=== PATIENT | female | born 1965 | race Caucasian/White ===

== ENCOUNTER 2017-02-25 23:58 | Emergency (ER) | payer SELFPAY ==
[2017-02-25 23:58] VITALS: BMI 25.1
[2017-02-26 00:09] VITALS: BP 115/77; PULSE 84; RESP 16; TEMP 97.6; O2SAT 98
[2017-02-26] MEDS ORDERED: Oxycodone/Acetaminophen 5/325 mg Tab PO STA (01:00)
--- NOTE | 2017-02-26 01:03 | C.PDOC ---
History Of Present Illness Patient is a 51 year old female w/PMHx of HTN ( diet controlled), asthma came to ED for evaluation of frontal headache and "has been unable to sleep for the past 10 days due to headache and neck pain". Patient describes headache as frontal " between my eyes and gnosticism area", intermittent worse with looking down. Describes posterior neck pain as aching, intermittent, worse in AM and with head rotation. The patient describes the headache as a similar headache she had month before. Patient received a head CT for the prior headache without acute abnormalities, (+) sinusitis. Patient denies recent antibiotic use . Patient denies fever, chills, denies worse headache of life, visual changes, blurry vision, double vision or floaters, focal deficits, vomiting, nausea, CP, SOB, dyspnea, diaphoresis, palpitation, abd. pain, UTI sx. Ambulate to ED for evaluation, not in any apparent distress. Time Seen by Provider: 02/26/17 00:17 Chief Complaint (Nursing): Eye Problem History Per: Patient Onset/Duration Of Symptoms: Intermittent Episodes Current Symptoms Are (Timing): Still Present Severity: Moderate Quality: Aching Past Medical History Reviewed: Historical Data, Nursing Documentation, Vital Signs Vital Signs: Last Vital Signs Temp 97.6 F 02/26/17 00:04 Pulse 84 02/26/17 00:04 Resp 16 02/26/17 00:04 BP 115/77 02/26/17 00:04 Pulse Ox 98 02/26/17 00:04 - Medical History PMH: Anxiety, HTN (diet controlled) Surgical History: Family History: States: No Known Family Hx - Social History Hx Tobacco Use: No Hx Alcohol Use: No Hx Substance Use: No - Immunization History Hx Tetanus Toxoid Vaccination: No Hx Influenza Vaccination: No Hx Pneumococcal Vaccination: No Review Of Systems Except As Marked, All Systems Reviewed And Found Negative. Constitutional: Negative for: Fever, Chills Eyes: Negative for: Vision Change ENT: Positive for: Nose Discharge, Nose Congestion. Negative for: Ear Discharge Cardiovascular: Negative for: Chest Pain Respiratory: Negative for: Cough, Shortness of Breath Gastrointestinal: Negative for: Nausea, Vomiting, Abdominal Pain, Diarrhea Genitourinary: Negative for: Dysuria, Frequency, Incontinence Musculoskeletal: Positive for: Neck Pain. Negative for: Back Pain Neurological: Positive for: Headache. Negative for: Weakness, Numbness, Altered Mental Status, Dizziness Physical Exam - Physical Exam Appears: Well, Non-toxic, No Acute Distress Skin: Normal Color, Warm, No Rash Head: Normacephalic Eye(s): bilateral: Normal Inspection, PERRL Ear(s): Bilateral: Normal Nose: Discharge (B/L nasal congestion with scant clear rhinorhea.), Other (mild tenderness over paranasal sinuses, no edema, no erythema.) Oral Mucosa: Moist Tongue: Normal Appearing Lips: Normal Appearing Throat: Normal, No Erythema, No Exudate, No Drooling Neck: Normal ROM, No Step Off Deformity, Supple, Other (mild B/L tenderness overlying trap.muscle with mild spasm. No midline tenderness.) Lymphatic: No Adenopathy Cardiovascular: Rhythm Regular Respiratory: Normal Breath Sounds, No Stridor, No Wheezing Gastrointestinal/Abdominal: Soft, No Tenderness, No Distention, No Guarding Back: No CVA Tenderness Extremity: No Pedal Edema, No Deformity Neurological/Psych: Oriented x3, Normal Speech, Normal Motor, Normal Sensation, Normal Reflexes ED Course And Treatment O2 Sat by Pulse Oximetry: 98 Pulse Ox Interpretation: Normal Progress Note: On re-evaluation, pt is afebrile, hemodynamicaly stable. NOn- toxic. AMbulatory in ED with stable gait. Tolerate Po well in ED. PusleOx 98% RA. ENT: exam c/w paranasal sinusitis. neck: (-) meningeal sign. Lungs: CTA B /L, BS equal B/L. Abd: benign. Neurologicaly intact. Pt has clinical findings c/w sinus headache, cervical strain. Pt advised and ref. to F/u with PMD, ENT In 2-3 days for re-eval. return if any worsening or new changes. Disposition Counseled Patient/Family Regarding: Diagnosis, Need For Followup, Rx Given - Disposition Referrals: Arvind Cortes MD [Medical Doctor] - Disposition: HOME/ ROUTINE Disposition Time: 01:03 Condition: STABLE Additional Instructions: Encourage fluids Warm compresses to paranasal area Take medication as prescribed Follow up with PMD and ENT In 2-3 days for re-evaluation. Return to ED if nay worsening or new changes. Prescriptions: Prednisone [Deltasone] 40 mg PO DAILY #6 tablet Fluticasone Propionate [Flonase] 1 actuation NS BID #1 bottle Methocarbamol [Robaxin] 500 mg PO TID #14 tab traMADol [Ultram] 50 mg PO TID #7 tab Azithromycin [Zithromax] 250 mg PO DAILY #4 tab Instructions: Sinusitis (ED) Print Language: MALAY - Clinical Impression Clinical Impression: Sinus headache, Cervical strain
[2017-02-26] MEDS ORDERED: Oxycodone/Acetaminophen 5/325 mg Tab ONE (01:04)
== END 2017-02-26 01:13 | disposition home or self-care (01) ==
LOC: C.ER 23:58
DX: J32.9 Chronic sinusitis, unspecified (principal); S16.1XXA Strain of muscle, fascia and tendon at neck level, initial encounter; X58.XXXA Exposure to other specified factors, initial encounter; Y92.9 Unspecified place or not applicable

== ENCOUNTER 2017-04-16 04:52 | Emergency (ER) | payer SELFPAY ==
[2017-04-16 04:52] VITALS: BMI 25.1
[2017-04-16 05:10] VITALS: O2SAT 100
--- NOTE | 2017-04-16 05:32 | C.PDOC ---
History Of Present Illness Patient presents to the ED with complaints of neck pain and feeling as though her blood pressure was high. Patient states it is painful to move and denies any visual changes, nausea, or vomiting. Time Seen by Provider: 04/16/17 05:32 Chief Complaint (Nursing): Medical Clearance History Per: Patient History/Exam Limitations: no limitations Onset/Duration Of Symptoms: Hrs Current Symptoms Are (Timing): Still Present Severity: Mild Pain Scale Rating Of: 4 Recent travel outside of the [place]: No Past Medical History Reviewed: Historical Data, Nursing Documentation, Vital Signs Vital Signs: Last Vital Signs Temp 97.5 F L 04/16/17 05:59 Pulse 65 04/16/17 05:59 Resp 18 04/16/17 05:59 BP 109/75 04/16/17 05:59 Pulse Ox 100 04/16/17 05:59 - Medical History PMH: Anxiety, HTN (diet controlled) Surgical History: Family History: States: No Known Family Hx - Social History Hx Tobacco Use: No Hx Alcohol Use: No Hx Substance Use: No - Immunization History Hx Tetanus Toxoid Vaccination: No Hx Influenza Vaccination: No Hx Pneumococcal Vaccination: No Review Of Systems Constitutional: Negative for: Fever, Chills, Sweats Eyes: Negative for: Vision Change Cardiovascular: Negative for: Chest Pain, Palpitations Respiratory: Negative for: Cough, Shortness of Breath Gastrointestinal: Negative for: Nausea, Vomiting, Abdominal Pain, Diarrhea Musculoskeletal: Positive for: Neck Pain Physical Exam - Physical Exam Appears: Non-toxic, No Acute Distress Skin: Warm, Dry Head: Atraumatic Oral Mucosa: Moist Neck: Supple Chest: Symmetrical, No Deformity Cardiovascular: Rhythm Regular Respiratory: No Rales, No Rhonchi, No Stridor, No Wheezing Gastrointestinal/Abdominal: Soft, No Tenderness, No Distention, No Guarding, No Rebound Back: Paraspinal Tenderness (paracervical tenderness) Extremity: Normal ROM, No Tenderness Neurological/Psych: Oriented x3 ED Course And Treatment O2 Sat by Pulse Oximetry: 100 (room air ) Pulse Ox Interpretation: Normal Reevaluation Time: 06:13 Reassessment Condition: Improved Disposition Counseled Patient/Family Regarding: Studies Performed, Diagnosis, Need For Followup - Disposition Referrals: [facility] [Outside] [facility] [Outside] Disposition: HOME/ ROUTINE Disposition Time: 05:32 Condition: FAIR Prescriptions: Diazepam [Valium] 2 mg PO HS PRN #5 tablet PRN Reason: Muscle Spasm Naproxen [Naprosyn] 1 tab PO BID PRN #25 tab PRN Reason: Pain Instructions: Cervical Strain (DC), Neck Exercises (GEN) - Clinical Impression Clinical Impression: Cervical strain - Scribe Statement The provider has reviewed the documentation as recorded by the Scribkeaton Lomeli All medical record entries made by the Balibkeaton were at my direction and personally dictated by me. I have reviewed the chart and agree that the record accurately reflects my personal performance of the history, physical exam, medical decision making, and the department course for this patient. I have also personally directed, reviewed, and agree with the discharge instructions and disposition.
[2017-04-16 05:59] VITALS: BP 109/75; PULSE 65; RESP 18; TEMP 97.5
== END 2017-04-16 06:21 | disposition home or self-care (01) ==
LOC: C.ER 04:52
DX: S16.1XXA Strain of muscle, fascia and tendon at neck level, initial encounter (principal); X58.XXXA Exposure to other specified factors, initial encounter; Y93.89 Activity, other specified; Y92.89 Other specified places as the place of occurrence of the external cause

== ENCOUNTER 2017-05-20 02:12 | Emergency (ER) | payer SELFPAY ==
[2017-05-20 02:12] VITALS: BMI 25.1
[2017-05-20] MEDS ORDERED: Sodium Chloride 0.9% 500 ML IV ONE (03:25)
[2017-05-20 04:09] LABS: BASO # 0.1 K/uL (0.0-0.2); BASO % 0.9 % (0.0-2.0); EOS # 0.4 K/uL (0.0-0.7); EOS % 7.7 % (0.0-4.0); LYMPH # 2.9 K/uL (1.0-4.3); LYMPH % 50.2 % (20.0-40.0); MEAN CELL VOLUME 83.4 fL (81.0-99.0); MEAN CORPUSCULAR HEMOGLOBIN 26.7 pg (27.0-31.0); MEAN PLATELET VOLUME 8.4 fL (7.2-11.7); MONO # 0.7 K/uL (0.0-0.8); NEUT # 1.7 K/uL (1.8-7.0); NEUT % 29.2 % (50.0-75.0); RBC 4.89 Mil/uL (3.80-5.20); WHITE BLOOD COUNT 5.8 K/uL (4.8-10.8)
[2017-05-20 04:18] LABS: ALBUMIN 3.9 g/dL (3.5-5.0)
[2017-05-20 04:21] LABS: ALB/GLOB RATIO 1.1 (1.0-2.1); ALT/SGPT 31 U/L (9-52); AST/SGOT 21 U/L (14-36); BLOOD UREA NITROGEN 19 mg/dL (7-17); GFR AFRICAN-AMERICAN > 60; GFR NON-AFRICAN AMERICAN > 60
[2017-05-20 04:22] LABS: CALCIUM 8.9 mg/dl (8.6-10.4)
[2017-05-20 04:30] LABS: CK-MB 0.77 ng/mL (0.0-3.38)
[2017-05-20 06:14] LABS: BARBITURATES, UR NEGATIVE (NEGATIVE); BENZODIAZEPINES, UR NEGATIVE (NEGATIVE)
[2017-05-20 06:18] LABS: OPIATES, UR NEGATIVE (NEGATIVE); PHENCYCLIDINE, UR NEGATIVE (NEGATIVE)
--- NOTE | 2017-05-20 06:35 | C.PDOC ---
History Of Present Illness 51 y/o female, with PMHx of anxiety, c/o of neck pain. Worse with movement. No trauma. no change in sensation. Note she has had the same symptoms previously and believed it is secondary to her BP being elevated. notes she took her BP meds at home today. Did not check her blood pressure at home. When she started to believe her BP was elevated she began to have palpitations. H/o of similar episodes in the past with anxiety. Symptoms resolved upon arrival to ED. Currently feels asymptomatic. Denies chest pain, shortness of breath, headache or fever. Time Seen by Provider: 05/20/17 03:12 Chief Complaint (Nursing): Palpitations History Per: Patient, Family History/Exam Limitations: no limitations, language barrier Onset/Duration Of Symptoms: Days Current Symptoms Are (Timing): Still Present Quality Of Discomfort: "Pain" Previous Symptoms: Neck Pain Associated Symptoms: None. denies: Incontinence, New Weakness, New Numbness Exacerbating Factor(s): Nothing Recent travel outside of the [place]: No Additional History Per: Patient Past Medical History Reviewed: Historical Data, Nursing Documentation, Vital Signs Vital Signs: Last Vital Signs Temp 98.9 F 05/20/17 07:09 Pulse 78 05/20/17 07:09 Resp 20 05/20/17 07:09 BP 110/66 05/20/17 07:09 Pulse Ox 99 05/22/17 08:05 - Medical History PMH: Anxiety, HTN (diet controlled) Surgical History: Family History: States: Unknown Family Hx - Social History Hx Tobacco Use: No Hx Alcohol Use: No Hx Substance Use: No - Immunization History Hx Tetanus Toxoid Vaccination: No Hx Influenza Vaccination: No Hx Pneumococcal Vaccination: No Review Of Systems Except As Marked, All Systems Reviewed And Found Negative. Constitutional: Negative for: Fever, Chills Cardiovascular: Positive for: Palpitations. Negative for: Chest Pain, Edema, Light Headedness Respiratory: Negative for: Cough, Shortness of Breath Gastrointestinal: Negative for: Nausea, Vomiting, Abdominal Pain Musculoskeletal: Positive for: Neck Pain. Negative for: Back Pain Skin: Negative for: Rash Neurological: Negative for: Weakness, Numbness, Headache, Dizziness Physical Exam - Physical Exam Appears: Non-toxic, No Acute Distress Skin: Normal Color, Warm, Dry Head: Atraumatic, Normacephalic Eye(s): bilateral: Normal Inspection, EOMI Nose: Normal Oral Mucosa: Moist Throat: Normal Neck: Normal ROM, No Midline Cervical Tenderness, Paracervical Tenderness (left paracervical tenderness), Supple Chest: Symmetrical, No Tenderness Cardiovascular: Rhythm Regular, No Murmur Respiratory: Normal Breath Sounds, No Rales, No Rhonchi, No Wheezing Gastrointestinal/Abdominal: Soft, No Tenderness Extremity: Normal ROM Neurological/Psych: Oriented x3, Normal Speech, Normal Cognition ED Course And Treatment - Laboratory Results Result Diagrams: 05/20/17 04:06 05/20/17 04:06 ECG: Interpreted By Me, Viewed By Me ECG Rhythm: Sinus Rhythm ECG Interpretation: No Acute Changes Rate From EC (bpm) O2 Sat by Pulse Oximetry: 99 Pulse Ox Interpretation: Normal Progress Note: Blood work, urinalysis, CXR, EKG ordered and reviewed. Patient was given Toradol, and IV fluids. On re-eval, pt remains asymptomatic. Notes improvement of neck pain. No chest pain, dizziness, or SOB. Patient instructed strict follow up with PMD in 1-2 days. Disposition - Disposition Disposition: HOME/ ROUTINE Disposition Time: 06:34 Condition: STABLE Additional Instructions: Vaya a pelaez mdico o la clnica en 2-5 fuchs sin falta, para mas evaluacin. [place] los medicamentos gabbie indicado. Volver a la yvonne de emergencia en cualquier momento si los sntomas persisten o empeoran. Instructions: Palpitations (ED) Print Language: NIUEAN - Clinical Impression Clinical Impression: Cervical strain, Anxiety - PA / BODY SANDER / Resident Statement MD/DO has reviewed & agrees with the documentation as recorded. - Scribe Statement The provider has reviewed the documentation as recorded by the Scribe Lester Cordova All medical record entries made by the Balibkeaton were at my direction and personally dictated by me. I have reviewed the chart and agree that the record accurately reflects my personal performance of the history, physical exam, medical decision making, and the department course for this patient. I have also personally directed, reviewed, and agree with the discharge instructions and disposition.
--- NOTE | 2017-05-20 06:35 | C.PDOC ---
Time Seen by Provider: 05/20/17 03:12 Chief Complaint (Nursing): Palpitations Past Medical History Vital Signs: Last Vital Signs Temp 97.9 F 05/20/17 02:51 Pulse 95 H 05/20/17 02:51 Resp 18 05/20/17 02:51 BP 142/76 05/20/17 02:51 Pulse Ox 99 05/20/17 02:51 - Medical History PMH: Anxiety, HTN (diet controlled) Surgical History: Family History: States: Unknown Family Hx - Social History Hx Tobacco Use: No Hx Alcohol Use: No Hx Substance Use: No - Immunization History Hx Tetanus Toxoid Vaccination: No Hx Influenza Vaccination: No Hx Pneumococcal Vaccination: No ED Course And Treatment - Laboratory Results Result Diagrams: 05/20/17 04:06 05/20/17 04:06 O2 Sat by Pulse Oximetry: 99 Disposition - Disposition Disposition: HOME/ ROUTINE Disposition Time: 06:34 Condition: STABLE Additional Instructions: Vaya a pelaez mdico o la clnica en 2-5 fuchs sin falta, para mas evaluacin. [place] los medicamentos gabbie indicado. Volver a la yvonne de emergencia en cualquier momento si los sntomas persisten o empeoran. Instructions: Palpitations (ED) Print Language: SAMI
[2017-05-20 07:09] VITALS: BP 110/66; PULSE 78; RESP 20; TEMP 98.9
--- NOTE | 2017-05-20 07:35 | RAD ---
PROCEDURE: CHEST RADIOGRAPH, 1 VIEW HISTORY: Shortness of breath COMPARISON: None available. FINDINGS: LUNGS: Biapical pleural thickening. Hyperinflation suggestive for COPD and or emphysematous changes. Mild venous congestion. Small oblong radiopaque density along the lateral aspect the left lower lung zone may represent confluence of shadows with ribs and vessels. PLEURA: No pneumothorax or pleural fluid seen. CARDIOVASCULAR: Normal. OSSEOUS STRUCTURES: No significant abnormalities. VISUALIZED UPPER ABDOMEN: Normal. OTHER FINDINGS: None. IMPRESSION: Biapical pleural thickening. Hyperinflation suggestive for COPD and or emphysematous changes. Mild venous congestion. Small oblong radiopaque density along the lateral aspect the left lower lung zone may represent confluence of shadows with ribs and vessels.
[2017-05-22 08:05] VITALS: O2SAT 99
--- NOTE | 2017-05-23 13:30 | CARD ---
APPROVED REPORT EKG Measurement Heart [id number] <Conclusion> Sinus rhythm with 1st degree AV block Otherwise normal ECG
== END 2017-05-20 07:09 | disposition home or self-care (01) ==
LOC: C.ER 02:12
DX: S16.1XXA Strain of muscle, fascia and tendon at neck level, initial encounter (principal); X58.XXXA Exposure to other specified factors, initial encounter; F41.9 Anxiety disorder, unspecified
CPT/HCPCS: 71010; 80053; 82550; 82553; 84484; 85025; 93005; 96374; 99284; G0480; J1885; J7040

== ENCOUNTER 2017-07-30 00:30 | Emergency (ER) | payer SELFPAY ==
[2017-07-30 00:30] VITALS: BMI 25.1
[2017-07-30 00:44] VITALS: RESP 20; O2SAT 99
--- NOTE | 2017-07-30 00:50 | C.PDOC ---
History Of Present Illness Patient complains o palpitations , some neck discomfort and the sensation of palpitations over the last 2 days . No cp, sob, speaking in compete sentences. Feels heart is beating fast Time Seen by Provider: 07/30/17 00:50 Chief Complaint (Nursing): Palpitations History Per: Patient History/Exam Limitations: no limitations Onset/Duration Of Symptoms: Days Current Symptoms Are (Timing): Still Present Associated Symptoms: denies: Chest Pain, Dyspnea, Dizziness Quality Of Symptoms: Asymptomatic Severity: Mild Pain Scale Rating Of: 2 Exacerbating Factor(s): Pos: None Recent travel outside of the [place]: No Additional History Per: Patient Past Medical History Reviewed: Historical Data, Nursing Documentation, Vital Signs Vital Signs: Last Vital Signs Temp 98.2 F 07/30/17 00:39 Pulse 85 07/30/17 00:39 Resp 20 07/30/17 00:39 BP 123/82 07/30/17 00:39 Pulse Ox 99 07/30/17 02:36 - Medical History PMH: Anxiety, HTN (diet controlled) Surgical History: Family History: States: No Known Family Hx - Social History Hx Tobacco Use: No Hx Alcohol Use: No Hx Substance Use: No - Immunization History Hx Tetanus Toxoid Vaccination: No Hx Influenza Vaccination: No Hx Pneumococcal Vaccination: No Review Of Systems Constitutional: Negative for: Fever, Chills Eyes: Negative for: Redness ENT: Negative for: Throat Pain Cardiovascular: Positive for: Palpitations. Negative for: Chest Pain Respiratory: Negative for: Shortness of Breath Gastrointestinal: Negative for: Nausea, Vomiting Genitourinary: Negative for: Dysuria Musculoskeletal: Negative for: Back Pain Skin: Negative for: Rash, Lesions Neurological: Negative for: Weakness Psych: Negative for: Anxiety Physical Exam - Physical Exam Appears: Non-toxic, No Acute Distress Skin: Warm, Dry Head: Normacephalic Eye(s): bilateral: Normal Inspection Oral Mucosa: Moist Neck: Supple Chest: Symmetrical Cardiovascular: Rhythm Regular Respiratory: No Rales, No Rhonchi, No Wheezing Gastrointestinal/Abdominal: Soft, No Tenderness, No Distention Back: No CVA Tenderness Extremity: No Tenderness Extremity: Bilateral: Atraumatic, Normal Color And Temperature, Normal ROM Pulses: Left Dorsalis Pedis: Normal, Right Dorsalis Pedis: Normal Neurological/Psych: Oriented x3, Normal Speech, Normal Cognition Gait: Steady ED Course And Treatment - Laboratory Results Result Diagrams: 07/30/17 01:24 07/30/17 01:24 ECG: Interpreted By Me, Viewed By Me ECG Rhythm: Sinus Rhythm (80), 1st Degree HB, Nonspecific Changes O2 Sat by Pulse Oximetry: 99 Pulse Ox Interpretation: Normal - Radiology CXR: Interpreted by Me, Viewed By Me CXR Interpretation: Yes: Other (unchanged from 05/20/17). No: Infiltrates, Fracture, Pnemothorax Reevaluation Time: 03:19 Reassessment Condition: Improved Disposition Counseled Patient/Family Regarding: Studies Performed, Diagnosis, Need For Followup, Rx Given - Disposition Referrals: Robin Jaquez [Staff Provider] - Disposition: HOME/ ROUTINE Disposition Time: 00:50 Condition: FAIR Additional Instructions: Please return if symptoms recur Prescriptions: Nitrofurantoin Macrocrystals [Macrobid] 1 cap PO BID #14 cap Instructions: Palpitations (ED), Urinary Tract Infection in Women (DC) Forms: [facility] (Wallisian) Print Language: TOGOLESE - Clinical Impression Clinical Impression: Palpitations, UTI (urinary tract infection)
[2017-07-30 01:26] LABS: BASO # 0.1 K/uL (0.0-0.2); BASO % 1.5 % (0.0-2.0); EOS # 0.4 K/uL (0.0-0.7); EOS % 6.2 % (0.0-4.0); HEMATOCRIT 39.6 % (34.0-47.0); LYMPH # 4.1 K/uL (1.0-4.3); LYMPH % 59.8 % (20.0-40.0); MEAN CELL VOLUME 83.6 fL (81.0-99.0); MEAN CORPUSCULAR HEMOGLOBIN 27.7 pg (27.0-31.0); MEAN CORPUSCULAR HGB CONC 33.1 g/dL (33.0-37.0); MEAN PLATELET VOLUME 8.6 fL (7.2-11.7); MONO # 0.9 K/uL (0.0-0.8); MONO % 12.8 % (0.0-10.0); NRBC % 0.1 % (0.0-2.0); PLATELET COUNT 244 K/uL (130-400); RED CELL DISTRIBUTION WIDTH 14.3 % (11.5-14.5); WHITE BLOOD COUNT 6.9 K/uL (4.8-10.8)
[2017-07-30 01:49] LABS: CHLORIDE 101 mmol/L (98-107); POTASSIUM 4.7 mmol/L (3.6-5.2); SODIUM 140 mmol/L (132-148)
[2017-07-30 01:51] LABS: BILIRUBIN,TOTAL 0.5 mg/dL (0.2-1.3); GFR AFRICAN-AMERICAN > 60
[2017-07-30 01:52] LABS: ALB/GLOB RATIO 1.2 (1.0-2.1); ALKALINE PHOSPHATASE 67 U/L (38-126); ALT/SGPT 31 U/L (9-52); AST/SGOT 32 U/L (14-36); BLOOD UREA NITROGEN 25 mg/dL (7-17); CARBON DIOXIDE 26 mmol/L (22-30); GLUCOSE,RANDOM 77 mg/dL (65-105); TOTAL PROTEIN 7.3 g/dL (6.3-8.3)
[2017-07-30 01:53] LABS: CALCIUM 9.2 mg/dl (8.6-10.4)
[2017-07-30 02:02] LABS: RBC URINE 23 /hpf (0-3); URINE BACTERIA MANY (<OCC); URINE BILIRUBIN NEGATIVE (NEGATIVE); URINE BLOOD 1+ (NEGATIVE); URINE COLOR Yellow (YELLOW); URINE GLUCOSE (UA) NORMAL (Normal); URINE KETONE NEGATIVE (NEGATIVE); URINE LEUKOCYTE ESTERASE 2+ Leu/uL (Negative); URINE PROTEIN NEGATIVE (NEGATIVE); URINE UROBILINOGEN NORMAL mg/dL (0.2-1.0); WBC URINE 22 /hpf (0-5)
[2017-07-30 02:20] LABS: BASOPHIL 1 % (0-2); EOSINOPHIL 4 % (0-4); MYELOCYTE 1 % (0-0); NEUTROPHIL 10 % (50-75); REACTIVE LYMPHOCYTES 41 % (0-0); TOTAL CELLS COUNTED 100
[2017-07-30 02:23] LABS: THYROID STIMULATING HORMONE 3.29 mIU/L (0.46-4.68)
[2017-07-30 03:44] VITALS: BP 97/68; PULSE 68; TEMP 97.6
--- NOTE | 2017-07-30 07:54 | RAD ---
PROCEDURE: CHEST RADIOGRAPH, 1 VIEW HISTORY: palpitations COMPARISON: 05/20/2017 FINDINGS: LUNGS: Mild venous congestion. Patchy increased markings at both lung bases. Question trace left pleural effusion. PLEURA: As above. CARDIOVASCULAR: Normal. OSSEOUS STRUCTURES: No significant abnormalities. VISUALIZED UPPER ABDOMEN: Normal. OTHER FINDINGS: None. IMPRESSION: Mild venous congestion. Patchy increased markings at both lung bases. Question trace left pleural effusion.
--- NOTE | 2017-08-01 22:00 | CARD ---
APPROVED REPORT EKG Measurement Heart [id number] <Conclusion> Sinus rhythm with 1st degree AV block Otherwise normal ECG
== END 2017-07-30 03:43 | disposition home or self-care (01) ==
LOC: C.ER 00:30
DX: R00.2 Palpitations (principal); N39.0 Urinary tract infection, site not specified

== ENCOUNTER 2017-08-11 11:55 | Emergency (ER) | payer OTHER ==
[2017-08-11 11:55] VITALS: BMI 25.1
[2017-08-11 12:03] VITALS: TEMP 97.8; O2SAT 98
--- NOTE | 2017-08-11 12:44 | C.PDOC ---
History Of Present Illness 51 y/o female with a Hx of HTN, c/o intermittent discomfort to the back of the left scalp and bilateral ear "buzzing" for 3 days. Scalp discomfort is describe as pins and needles sensation inside the scalp, that "makes her skin crawl when she feels it." Patient reports having tinitus before. Patient has no trouble hearing. Denies headache, neck pain, or trauma. No fever, chills, nausea, vomiting, or sore throat. Time Seen by Provider: 08/11/17 12:33 Chief Complaint (Nursing): ENT Problem History Per: Patient History/Exam Limitations: no limitations Onset/Duration Of Symptoms: Days (3) Current Symptoms Are (Timing): Still Present Severity: Mild Associated Symptoms: denies: Nausea, Vomiting Recent travel outside of the [place]: No Additional History Per: Patient Past Medical History Reviewed: Historical Data, Nursing Documentation, Vital Signs Vital Signs: Last Vital Signs Temp 97.8 F 08/11/17 12:02 Pulse 67 08/11/17 14:27 Resp 16 08/11/17 14:27 BP 98/63 L 08/11/17 14:27 Pulse Ox 98 08/11/17 14:27 - Medical History PMH: Anxiety, HTN (diet controlled) Surgical History: Family History: States: Unknown Family Hx - Social History Hx Tobacco Use: No Hx Alcohol Use: No Hx Substance Use: No - Immunization History Hx Tetanus Toxoid Vaccination: No Hx Influenza Vaccination: No Hx Pneumococcal Vaccination: No Review Of Systems Constitutional: Negative for: Fever, Chills, Other (Trauma) ENT: Positive for: Other ("Ear buzzing". No trouble hearing.). Negative for: Throat Pain Gastrointestinal: Negative for: Nausea, Vomiting Musculoskeletal: Negative for: Neck Pain Neurological: Positive for: Other (discomfort to the back of the left scalp.). Negative for: Headache Physical Exam - Physical Exam Appears: Non-toxic, No Acute Distress Skin: Warm, Dry Head: Atraumatic, Normacephalic Eye(s): bilateral: Normal Inspection Ear(s): Bilateral: Normal Throat: Normal, No Erythema Neurological/Psych: Oriented x3 ED Course And Treatment O2 Sat by Pulse Oximetry: 98 (RA) Pulse Ox Interpretation: Normal Medical Decision Making Medical Decision Making: Impression: * discomfort to the left scalp of the back of the head and bilateral ear "buzzing" for 3 days. Plans: * Tylenol * Motrin Patient is in no acute distress at this time. Patient is improving with the discomfort and is without headache or neck pain. Patient was advised to follow up with her PMD for further evaluation and to return if symptoms worsens. Disposition Counseled Patient/Family Regarding: Diagnosis, Need For Followup, Rx Given - Disposition Referrals: [facility] [Outside] Disposition: HOME/ ROUTINE Disposition Time: 14:22 Condition: STABLE Prescriptions: Ibuprofen [Motrin] 600 mg PO TID #15 tab Instructions: Tinnitus (ED) Forms: [employer] (Azeri) - POA Present On Arrival: None - Clinical Impression Clinical Impression: Tinnitus - Scribe Statement The provider has reviewed the documentation as recorded by the Scribe Esteban [email or web address] All medical record entries made by the Balibe were at my direction and personally dictated by me. I have reviewed the chart and agree that the record accurately reflects my personal performance of the history, physical exam, medical decision making, and the department course for this patient. I have also personally directed, reviewed, and agree with the discharge instructions and disposition.
[2017-08-11 14:27] VITALS: BP 98/63; PULSE 67; RESP 16
== END 2017-08-11 14:31 | disposition home or self-care (01) ==
LOC: C.ER 11:55
DX: H93.19 Tinnitus, unspecified ear (principal)

== ENCOUNTER 2017-09-15 00:41 | Emergency (ER) | payer SELFPAY ==
[2017-09-15 00:41] VITALS: BMI 25.1
[2017-09-15 00:57] VITALS: O2SAT 99
[2017-09-15] MEDS ORDERED: DiphenhydrAMINE 50 mg/ml Inj IVP STA (01:50)
[2017-09-15] MEDS ORDERED: DiphenhydrAMINE 50 mg/ml Inj ONE (02:08)
--- NOTE | 2017-09-15 03:05 | C.PDOC ---
History Of Present Illness 51 year old female presents to the ED with complaints of a headache. Patient states feeling right frontal pressure for about 3 weeks associated with nasal congestion, took Tylenol with minimum relief. Patient denies nausea, vomit, fever, dizziness, photophobia, weakness,numbness, tingling or known sick contacts. Time Seen by Provider: 09/15/17 01:22 Chief Complaint (Nursing): Headache History Per: Patient History/Exam Limitations: no limitations Onset/Duration Of Symptoms: Days Current Symptoms Are (Timing): Still Present Quality: Pressure Preceeding Symptoms: None Associated Symptoms: denies: Photophobia, Blurred Vision, Nausea, Vomiting, Extremity Weakness Recent travel outside of the [place]: No Additional History Per: Patient Past Medical History Reviewed: Historical Data, Nursing Documentation, Vital Signs Vital Signs: Last Vital Signs Temp 97.6 F 09/15/17 03:43 Pulse 63 09/15/17 03:43 Resp 18 09/15/17 03:43 BP 110/73 09/15/17 03:43 Pulse Ox 99 09/15/17 06:15 - Medical History PMH: Anxiety, HTN (diet controlled) Surgical History: Family History: States: Unknown Family Hx - Social History Hx Tobacco Use: No Hx Alcohol Use: No Hx Substance Use: No - Immunization History Hx Tetanus Toxoid Vaccination: No Hx Influenza Vaccination: No Hx Pneumococcal Vaccination: No Review Of Systems Constitutional: Negative for: Fever, Chills, Weakness Eyes: Negative for: Vision Change Cardiovascular: Negative for: Chest Pain Respiratory: Negative for: Cough, Shortness of Breath Gastrointestinal: Negative for: Nausea, Vomiting Neurological: Positive for: Headache. Negative for: Weakness, Numbness Physical Exam - Physical Exam Appears: Non-toxic, No Acute Distress, Other (anxious) Skin: Normal Color, Warm, Dry Head: Atraumatic, Normacephalic, Tenderness (Frontal sinuses) Eye(s): bilateral: Normal Inspection, PERRL, EOMI Nose: Other (Enlarged nasal turbinates) Oral Mucosa: Moist Throat: Normal, No Erythema, No Exudate Neck: Normal ROM, Supple Chest: Symmetrical, No Tenderness Cardiovascular: Rhythm Regular, No Murmur Respiratory: Normal Breath Sounds, No Accessory Muscle Use, No Rales, No Rhonchi , No Wheezing Extremity: Normal ROM, No Pedal Edema, No Deformity, No Swelling Neurological/Psych: Oriented x3, Normal Speech, Normal Cognition, Normal Cranial Nerves, Normal Motor, Normal Sensation Gait: Steady ED Course And Treatment O2 Sat by Pulse Oximetry: 99 (On RA) Pulse Ox Interpretation: Normal Medical Decision Making Medical Decision Making: Impression : 51 y/o female with headache and nasal congestion Plan: * Benadryl 25 mg IVP administered * Motrin tab 600 mg PO administered Patient is resting comfortably and sleeping after taking her medications, patient will be discharged and is given instruction to follow up with her PMD for further treatment. Disposition Counseled Patient/Family Regarding: Diagnosis, Need For Followup, Rx Given - Disposition Referrals: [facility] [Outside] Disposition: HOME/ ROUTINE Disposition Time: 03:03 Condition: STABLE Additional Instructions: Please follow up in clinic Take motrin PO User nasal spray and decongestants Return to ER if worse Prescriptions: Cetirizine HCl [Zyrtec] 10 mg PO DAILY #20 capsule Ibuprofen [Motrin] 600 mg PO Q6H #20 tab Mometasone Furoate [Nasonex] 2 spray NS DAILY #1 bottle Instructions: Sinusitis (ED) Forms: [employer] (Lao) Print Language: ALBANIAN - Clinical Impression Clinical Impression: Sinus headache - 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 - Scribe Statement The provider has reviewed the documentation as recorded by the Scribe Dylan Hamlin All medical record entries made by the Scribe were at my direction and personally dictated by me. I have reviewed the chart and agree that the record accurately reflects my personal performance of the history, physical exam, medical decision making, and the department course for this patient. I have also personally directed, reviewed, and agree with the discharge instructions and disposition.
[2017-09-15 03:44] VITALS: BP 110/73; PULSE 63; RESP 18; TEMP 97.6
== END 2017-09-15 03:47 | disposition home or self-care (01) ==
LOC: C.ER 00:41
DX: R51 Headache (principal)
CPT/HCPCS: 96374; 99285; J1200

== ENCOUNTER 2017-10-24 22:19 | Emergency (ER) | payer OTHER ==
[2017-10-24 22:19] VITALS: BMI 25.1
[2017-10-24 22:33] VITALS: PULSE 77; TEMP 97.3; O2SAT 100
[2017-10-24] MEDS ORDERED: Apap-Butalbital-Caffeine 325-50-40mg Tab PO STA (23:01)
[2017-10-24] MEDS ORDERED: Apap-Butalbital-Caffeine 325-50-40mg Tab ONE (23:09)
--- NOTE | 2017-10-24 23:27 | C.PDOC ---
History Of Present Illness Patient is a 52 y/o female, with a Hx of chronic HAs, who presents to the ED with a complaint of a right frontal GUZMAN that radiates to the posterior head and neck for the last 3 days. Patient has had previous ED visits for similar symptoms. Admits to taking OTC Tylenol with no relief. Denies fever or sick contact. No other physical complaints at this time. Time Seen by Provider: 10/24/17 22:42 Chief Complaint (Nursing): Headache History Per: Patient History/Exam Limitations: no limitations Onset/Duration Of Symptoms: Days (3 days ) Current Symptoms Are (Timing): Still Present Recent travel outside of the [place]: No Past Medical History Reviewed: Historical Data, Nursing Documentation, Vital Signs Vital Signs: Last Vital Signs Temp 97.3 F L 10/24/17 22:27 Pulse 77 10/24/17 22:27 Resp 20 10/24/17 23:42 BP Pulse Ox 100 10/25/17 02:14 - Medical History PMH: Anxiety, HTN (diet controlled) Other PMH: chronic headaches Surgical History: No Surg Hx, Family History: States: No Known Family Hx - Social History Hx Tobacco Use: No Hx Alcohol Use: No Hx Substance Use: No - Immunization History Hx Tetanus Toxoid Vaccination: No Hx Influenza Vaccination: No Hx Pneumococcal Vaccination: No Review Of Systems Constitutional: Negative for: Fever, Chills Musculoskeletal: Positive for: Neck Pain (pain radiated from GUZMAN) Neurological: Positive for: Headache (right frontal GUZMAN, radiates to posterior head and neck) Physical Exam - Physical Exam Appears: Well, Non-toxic, No Acute Distress Skin: Normal Color, Warm, Dry Head: Atraumatic, Normacephalic Eye(s): bilateral: Normal Inspection, PERRL, EOMI Ear(s): Bilateral: Normal Throat: Normal, No Erythema Neck: Supple, Other (nontender) Extremity: Bilateral: Atraumatic, Normal Color And Temperature Neurological/Psych: Oriented x3, Normal Speech, Normal Cognition, Normal Cranial Nerves, Normal Motor, Normal Sensation, Other Gait: Steady ED Course And Treatment O2 Sat by Pulse Oximetry: 100 (room air) Pulse Ox Interpretation: Normal Progress Note: Fioricet and Flexeril administered. On re-eval, patient reports to feel better and is advised to follow up with PMD if symptoms persist. Patient to be discharged. Disposition Counseled Patient/Family Regarding: Diagnosis, Need For Followup, Rx Given - Disposition Disposition: HOME/ ROUTINE Disposition Time: 23:25 Condition: STABLE Additional Instructions: Please follow up in clinic for neurology referral Take meds as prescribed Return to ER if worse Prescriptions: Acetaminophen/Butalbital/Caf [Fioricet] 1 tab PO TID PRN #20 tab PRN Reason: Headache Cyclobenzaprine [Cyclobenzaprine HCl] 10 mg PO DAILY #7 tab Instructions: Migraine Headache (ED) Forms: [employer] (Korean) Print Language: TURKMEN - Clinical Impression Clinical Impression: Headache - Scribe Statement The provider has reviewed the documentation as recorded by the Scribe Selena Marquez All medical record entries made by the Scribe were at my direction and personally dictated by me. I have reviewed the chart and agree that the record accurately reflects my personal performance of the history, physical exam, medical decision making, and the department course for this patient. I have also personally directed, reviewed, and agree with the discharge instructions and disposition.
[2017-10-24 23:43] VITALS: RESP 20
== END 2017-10-24 23:42 | disposition home or self-care (01) ==
LOC: C.ER 22:19
DX: R51 Headache (principal); I10 Essential (primary) hypertension

== ENCOUNTER 2017-11-06 | Emergency (ER) | payer OTHER ==
[2017-11-06] VITALS: BMI 25.1
--- NOTE | 2017-11-06 00:16 | C.PDOC ---
History Of Present Illness 52 year old female presents to the ED c/o dull aching like pain to his left arm radiating from his neck down to his arm for the past 2 days, patient rates his pain 3/10. Patient is speaking in full sentences, he denies fever, chills, nausea, vomit, diarrhea. Time Seen by Provider: 11/06/17 00:15 Chief Complaint (Nursing): Chest Pain History Per: Patient History/Exam Limitations: no limitations Onset/Duration Of Symptoms: Days Current Symptoms Are (Timing): Still Present Context: Travel Pain Scale Rating Of: 3 Quality: Dull, Aching Modifying Factors: None Exacerbating Factors: None Alleviating Factors: None Recent travel outside of the [place]: No Additional History Per: Patient Past Medical History Reviewed: Historical Data, Nursing Documentation, Vital Signs Vital Signs: Last Vital Signs Temp 97.6 F 11/06/17 00:09 Pulse 78 11/06/17 00:09 Resp 14 11/06/17 00:09 BP 115/76 11/06/17 00:09 Pulse Ox 99 11/06/17 00:38 - Medical History PMH: Anxiety, HTN (diet controlled) Surgical History: Family History: States: Unknown Family Hx - Social History Hx Tobacco Use: No Hx Alcohol Use: No Hx Substance Use: No - Immunization History Hx Tetanus Toxoid Vaccination: No Hx Influenza Vaccination: No Hx Pneumococcal Vaccination: No Review Of Systems Constitutional: Negative for: Fever, Chills Cardiovascular: Positive for: Chest Pain. Negative for: Palpitations Respiratory: Negative for: Cough, Shortness of Breath Gastrointestinal: Negative for: Nausea, Vomiting, Abdominal Pain Musculoskeletal: Positive for: Neck Pain (left side), Arm Pain (left) Skin: Negative for: Rash Neurological: Negative for: Weakness, Numbness Physical Exam - Physical Exam Appears: Non-toxic, No Acute Distress Skin: Warm, Dry Head: Normacephalic Nose: No Discharge, No Deformity Oral Mucosa: Moist Neck: Normal ROM, Paracervical Tenderness (mild discomfort), Supple Chest: Symmetrical Cardiovascular: Rhythm Regular, No Murmur Respiratory: No Decreased Breath Sounds, No Rales, No Rhonchi, No Wheezing Gastrointestinal/Abdominal: Soft, No Tenderness Extremity: Normal ROM, No Pedal Edema, No Calf Tenderness, No Deformity, No Swelling Neurological/Psych: Oriented x3, Normal Speech, Normal Cognition, Normal Motor, Normal Sensation, Other (no focal deficits) Gait: Steady ED Course And Treatment - Laboratory Results Result Diagrams: 11/06/17 00:49 11/06/17 00:49 ECG: Interpreted By Me, Viewed By Me ECG Rhythm: Sinus Rhythm (73), Nonspecific Changes Rate From EC O2 Sat by Pulse Oximetry: 99 (On RA) Pulse Ox Interpretation: Normal - Radiology CXR: Interpreted by Me, Viewed By Me Progress Note: Plan: -CT cervical spine. -EKG. -CXR. -Ecotrin 325 mg PO. - UA Reevaluation Time: 03:33 Reassessment Condition: Improved Disposition Counseled Patient/Family Regarding: Studies Performed, Diagnosis, Need For Followup, Rx Given - Disposition Referrals: [facility] [Outside] [facility] [Outside] Disposition: HOME/ ROUTINE Disposition Time: 03:30 Condition: FAIR Prescriptions: Naproxen [Naprosyn] 1 tab PO BID PRN #25 tab PRN Reason: Pain Instructions: Neck Exercises (GEN) Forms: [employer] (Nigerian) Print Language: FAROESE - Clinical Impression Clinical Impression: Neck pain - Scribe Statement The provider has reviewed the documentation as recorded by the Scribe Dylan Hamlin All medical record entries made by the Scribe were at my direction and personally dictated by me. I have reviewed the chart and agree that the record accurately reflects my personal performance of the history, physical exam, medical decision making, and the department course for this patient. I have also personally directed, reviewed, and agree with the discharge instructions and disposition.
[2017-11-06] MEDS ORDERED: Aspirin 325 mg EC Tablets PO STA (00:28)
[2017-11-06] MEDS ORDERED: Aspirin 325 mg EC Tablets PO ONE (00:47)
[2017-11-06 00:55] LABS: BASO # 0.1 K/uL (0.0-0.2); EOS # 0.2 K/uL (0.0-0.7); EOS % 2.8 % (0.0-4.0); HEMOGLOBIN 13.1 g/dL (11.0-16.0); LYMPH % 42.8 % (20.0-40.0); MEAN CELL VOLUME 83.4 fL (81.0-99.0); MEAN CORPUSCULAR HEMOGLOBIN 27.6 pg (27.0-31.0); MEAN CORPUSCULAR HGB CONC 33.1 g/dL (33.0-37.0); MEAN PLATELET VOLUME 8.9 fL (7.2-11.7); MONO # 0.7 K/uL (0.0-0.8); MONO % 10.1 % (0.0-10.0); NEUT % 43.3 % (50.0-75.0); NRBC % 0.1 % (0.0-2.0); RBC 4.75 Mil/uL (3.80-5.20); RED CELL DISTRIBUTION WIDTH 14.4 % (11.5-14.5); WHITE BLOOD COUNT 6.9 K/uL (4.8-10.8)
[2017-11-06 01:04] LABS: ALB/GLOB RATIO 1.1 (1.0-2.1); ALBUMIN 4.1 g/dL (3.5-5.0); ALT/SGPT 30 U/L (9-52); AST/SGOT 30 U/L (14-36); BLOOD UREA NITROGEN 22 mg/dL (7-17); CALCIUM 8.6 mg/dl (8.6-10.4); GFR AFRICAN-AMERICAN > 60; GFR NON-AFRICAN AMERICAN > 60
[2017-11-06 02:27] LABS: SQUAMOUS EPITHIAL < 1 /hpf (0-5); URINE BILIRUBIN NEGATIVE (NEGATIVE); URINE BLOOD NEGATIVE (NEGATIVE); URINE CLARITY Clear (Clear); URINE COLOR Colorless (YELLOW); URINE GLUCOSE (UA) NORMAL (Normal); URINE LEUKOCYTE ESTERASE TRACE Leu/uL (Negative); URINE NITRATE NEGATIVE (NEGATIVE); URINE PROTEIN NEGATIVE (NEGATIVE); URINE UROBILINOGEN NORMAL mg/dL (0.2-1.0)
--- NOTE | 2017-11-06 03:24 | CT ---
EXAM: CT Cervical Spine Without Intravenous Contrast EXAM DATE/TIME: 11/06/2017 12:28 AM CLINICAL HISTORY: 52 years old, female; Pain; Neck pain TECHNIQUE: Axial computed tomography images of the cervical spine without intravenous contrast. All CT scans at this facility use one or more dose reduction techniques, viz.: automated exposure control; ma/kV adjustment per patient size (including targeted exams where dose is matched to indication; i.e. head); or iterative reconstruction technique. Coronal and sagittal reformatted images were created and reviewed. COMPARISON: No relevant prior studies available. FINDINGS: There is no prevertebral soft tissue swelling. The vertebral bodies and facet joints are well aligned. The vertebral body height is well maintained. No subluxation. No fractures. Possible very small disc protrusion C6-7 without significant central or neural foraminal stenosis. Small scattered lymph nodes are noted throughout the neck. IMPRESSION: No acute injury.
[2017-11-06 04:05] VITALS: BP 122/75; PULSE 74; RESP 20; TEMP 98; O2SAT 98
--- NOTE | 2017-11-06 08:46 | RAD ---
PROCEDURE: CHEST RADIOGRAPH, 1 VIEW HISTORY: chest pain COMPARISON: Comparison is made to 07/30/2017 FINDINGS: LUNGS: Clear. PLEURA: No pneumothorax or pleural fluid seen. CARDIOVASCULAR: Normal. OSSEOUS STRUCTURES: No significant abnormalities. VISUALIZED UPPER ABDOMEN: Normal. OTHER FINDINGS: None. IMPRESSION: No active disease.
--- NOTE | 2017-11-08 13:21 | CARD ---
APPROVED REPORT EKG Measurement Heart [id number] <Conclusion> Normal sinus rhythm Early repolarization Normal ECG
== END 2017-11-06 04:05 | disposition home or self-care (01) ==
LOC: C.ER
DX: M54.2 Cervicalgia (principal)

== ENCOUNTER 2017-12-26 03:45 | Emergency (ER) | payer MEDICAID, OTHER ==
[2017-12-26 03:45] VITALS: BMI 25.1
[2017-12-26 04:07] VITALS: RESP 18
[2017-12-26] MEDS ORDERED: Naproxen 550 mg Tab PO STA (04:44)
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
[2017-12-26] MEDS ORDERED: Naproxen 550 mg Tab PO ONE (04:50)
[2017-12-26 05:28] VITALS: BP 100/66; PULSE 72; TEMP 98.3; O2SAT 100
== END 2017-12-26 05:31 | disposition home or self-care (01) ==
LOC: C.ER 03:45
DX: S16.1XXA Strain of muscle, fascia and tendon at neck level, initial encounter (principal); X58.XXXA Exposure to other specified factors, initial encounter; Y92.9 Unspecified place or not applicable

== ENCOUNTER 2018-02-11 23:51 | Emergency (ER) | payer MEDICAID ==
[2018-02-11 23:51] VITALS: BMI 25.1
[2018-02-12] VITALS: TEMP 97.8; O2SAT 100
--- NOTE | 2018-02-12 00:52 | C.PDOC ---
History Of Present Illness 52 year old female brought in by ambulance for complaints of anxiety, palpitations, paresthesias of arms and legs, left-sided neck pain, and generalized weakness. She describes having symptoms on and off for the past 2 months. Patient has had several previous ED visits for the same, and has had extensive imaging including cervical spine CT scans/x-rays and CT head, all negative. Recent finding of 1 cm mass on right breast MRI has been scheduled for biopsy at the [facility]. As per son, patient is prescribed PO Metoprolol BID but is only taking it daily. Patient works as a homemaker. Time Seen by Provider: 02/12/18 00:21 Chief Complaint (Nursing): Chest Pain History Per: Patient History/Exam Limitations: no limitations Onset/Duration Of Symptoms: Intermittent Episodes (for 2 months) Current Symptoms Are (Timing): Better Past Medical History Reviewed: Historical Data, Nursing Documentation, Vital Signs Vital Signs: Last Vital Signs Temp 97.8 F 02/11/18 23:54 Pulse 92 H 02/11/18 23:54 Resp 14 02/11/18 23:54 BP 116/81 02/11/18 23:54 Pulse Ox 100 02/12/18 00:52 - Medical History PMH: Anxiety, HTN (diet controlled) Surgical History: Family History: States: Unknown Family Hx - Social History Hx Tobacco Use: No Hx Alcohol Use: No Hx Substance Use: No - Immunization History Hx Tetanus Toxoid Vaccination: No Hx Influenza Vaccination: No Hx Pneumococcal Vaccination: No Review Of Systems Constitutional: Positive for: Weakness. Negative for: Fever Cardiovascular: Positive for: Palpitations Respiratory: Positive for: Shortness of Breath Musculoskeletal: Positive for: Neck Pain Neurological: Positive for: Other (intermittent paresthesias of arms and legs) Psych: Positive for: Anxiety Physical Exam - Physical Exam Appears: Non-toxic, No Acute Distress Skin: Normal Color, Warm, Dry Head: Atraumatic, Normacephalic Eye(s): bilateral: Normal Inspection, PERRL, EOMI Nose: Normal Oral Mucosa: Moist Neck: Normal ROM, No Midline Cervical Tenderness, Supple Chest: Symmetrical, No Tenderness (with no digitally or positionally reproducible pain) Cardiovascular: Rhythm Regular, No Murmur Respiratory: Normal Breath Sounds, No Accessory Muscle Use, No Rales, No Rhonchi , No Wheezing, No Other (respiratory distress) Gastrointestinal/Abdominal: Soft, No Tenderness, No Distention Extremity: Bilateral: Atraumatic, No Pedal Edema, Normal Color And Temperature, Normal ROM Pulses: Left Dorsalis Pedis: Normal, Right Dorsalis Pedis: Normal Neurological/Psych: Oriented x3, Normal Speech, Normal Cranial Nerves, Normal Motor, Normal Sensation ED Course And Treatment O2 Sat by Pulse Oximetry: 100 (RA) Pulse Ox Interpretation: Normal Medical Decision Making Medical Decision Making: Prior visits reviewed: extensive visits and radiology all normal multiple dramatic acute symptoms of many organ symptoms and BIBA and all symptoms resolve on arrival Extensive d/w pt and son about pt's anxiety though with poor insight by pt. Plan: Pt is stable for d/c home Encouraged pt to attend doctor's visits accompanied by a family member for more cohesive care. Disposition Doctor Will See Patient In The: Office Counseled Patient/Family Regarding: Studies Performed, Diagnosis - Disposition Disposition: HOME/ ROUTINE Disposition Time: 00:52 Condition: GOOD Forms: [employer] (Swedish) - POA Present On Arrival: None - Clinical Impression Clinical Impression: Panic disorder - Scribe Statement The provider has reviewed the documentation as recorded by the Patrick Motley Provider Attestation: All medical record entries made by the Patrick were at my direction and personally dictated by me. I have reviewed the chart and agree that the record accurately reflects my personal performance of the history, physical exam, medical decision making, and the department course for this patient. I have also personally directed, reviewed, and agree with the discharge instructions and disposition.
[2018-02-12 00:59] VITALS: BP 128/76; PULSE 88; RESP 20
== END 2018-02-12 00:58 | disposition home or self-care (01) ==
LOC: C.ER 23:51
DX: F41.0 Panic disorder [episodic paroxysmal anxiety] (principal)